=== PATIENT | male | born 1960 | race Two or more races ===

== ENCOUNTER 2024-05-10 10:30 | Inpatient (IN) | payer OTHER ==
[~2024-05-10] VITALS: Ht 213.4 cm; Wt 104.3 kg
[2024-05-10] MEDS ORDERED: ZESTORETIC 20-1 EAC1 PO (11:26)
[2024-05-10] MEDS ORDERED: TAMS0.4C PO (11:26)
[2024-05-10] MEDS ORDERED: ADULT LOW DOSE81 M1 PO (11:26)
[2024-05-10] MEDS ORDERED: PEPCID AC20 MG PO (11:27)
[2024-05-10] MEDS ORDERED: CLONAZEPAM1 MG PO (11:27)
[2024-05-10] MEDS ORDERED: RESTORIL (11:28)
[2024-05-10] MEDS ORDERED: EFEXOR (11:28)
[2024-05-10] MEDS ORDERED: GLIPIZIDE ER5 MG PO (11:29)
[2024-05-10 11:30] VITALS: BP 121/72
[2024-05-19] MEDS ORDERED: CEFAZOLIN SODIUM 1,000 MG in 0.9 % SODIUM CHLORIDE 50 ML IV ONE (09:00)
[2024-05-19] MEDS ORDERED: BUPIVACAINE HCL 30 ML VIAL IJ ONE (09:00)
[2024-05-19] MEDS ORDERED: ENOXAPARIN SODIUM 40 MG/0.4 ML SYRINGE SUBCUTANEO ONE (09:00)
[2024-05-19] MEDS ORDERED: HEMOSTATIC MATRIX 1 KIT KIT TOP ONE (11:00)
[2024-05-19] MEDS ORDERED: SURGIFLO APPLICATOR 1 EACH APPL TOP ONE (11:00)
[2024-05-19] MEDS ORDERED: SUGAMMADEX SODIUM 200 MG/2 ML VIAL IV ONE ×2 (11:00→11:15)
[2024-05-19] MEDS ORDERED: MORPHINE SULFATE 4 MG/ML VIAL IV ONE (12:05)
[2024-05-19] MEDS ORDERED: ENALAPRILAT DIHYDRATE 1.25 MG/ML VIAL IV PRN (12:30)
[2024-05-19] MEDS ORDERED: INSULIN LISPRO 1,000 UNIT/10 ML UNITS SUBCUTANEO PRN (12:30)
[2024-05-19] MEDS ORDERED: RINGERS SOLUTION,LACTATED 1,000 ML IV SCH (12:30)
[2024-05-19] MEDS ORDERED: DEXTROSE 50 % IN WATER 0.5 G/ML DISP.SYRIN IV PRN (12:30)
[2024-05-19] MEDS ORDERED: OxyCODONE HCL/APAP UD (PERCOCET) PO PRN (12:30)
[2024-05-19] MEDS ORDERED: ONDANSETRON HCL 2 MG/ML VIAL IV PRN (12:30)
[2024-05-19 13:19] LABS: HEMATOCRIT 33.9 % (39.0-48.0); HEMOGLOBIN 11.6 g/dL (13-16.00); MEAN CELL VOLUME 92.7 fL (80.0-100.00); MEAN CORPUSCULAR HEMOGLOBIN 31.6 pg (27.00-32.0); MEAN CORPUSCULAR HGB CONC 34.1 g/dl (32.0-36.0); PLATELET COUNT 202 K/uL (150-450); RED BLOOD COUNT 3.66 M/uL (4.00-6.00); RED CELL DISTRIBUTION WIDTH 12.9 % (11.5-14.5)
[2024-05-19 13:40] VITALS: BP 117/69; O2SAT 96
[2024-05-19 14:35] LABS: CALCIUM 8.4 mg/dL (8.5-10.1); CREATININE SERUM 1.35 mg/dL (0.70-1.30); GFR 53.21; POTASSIUM 4.54 mEq/L (3.5-5.1)
[2024-05-19 17:00] VITALS: BP 115/59; O2SAT 98
[2024-05-19] MEDS ORDERED: CLONAZEPAM 1 MG TABLET PO SCH (17:00)
[2024-05-19] MEDS ORDERED: POLYETHYLENE GLYCOL 3350 17 GM BLIST.PACK PO SCH (17:00)
[2024-05-19] MEDS ORDERED: GABAPENTIN 300 MG CAPSULE PO SCH (17:00)
[2024-05-19] MEDS ORDERED: CEFAZOLIN SODIUM 1,000 MG VIAL IV SCH (18:00)
[2024-05-19] MEDS ORDERED: FAMOTIDINE/PF 20 MG/2 ML VIAL IV SCH (21:00)
[2024-05-20] VITALS: BP 125/60; O2SAT 97
[2024-05-20 08:00] VITALS: BP 110/69; O2SAT 95
[2024-05-20] MEDS ORDERED: ENOXAPARIN SODIUM 40 MG/0.4 ML SYRINGE SUBCUTANEO SCH (09:00)
== END 2024-05-20 11:54 | disposition home or self-care (01) | DRG 718 ==
LOC: O/R 05-19 05:12 → SURG 05-19 07:00 → EDBD 05-19 10:30 → SURG 05-19 10:30 → SURH 05-19 14:10
PROVIDERS: ADMIT Urology; ATTEND Urology
PROC: 8E0W4CZ Robotic Assisted Procedure of Trunk Region, Percutaneous Endoscopic Approach (ICD-10-PCS; 2024-05-19)
PROC: 0VB04ZZ Excision of Prostate, Percutaneous Endoscopic Approach (ICD-10-PCS; principal; 2024-05-19 07:00)
DX: N40.1 Benign prostatic hyperplasia with lower urinary tract symptoms (principal); Z20.822 Contact with and (suspected) exposure to COVID-19
CPT/HCPCS: 55867; S2900